=== PATIENT | male | born 1985 | race Caucasian/White ===

== ENCOUNTER 2022-01-08 11:47 | Emergency (ER) | payer OTHER ==
[~2022-01-08] VITALS: Ht 172.7 cm; Wt 51.3 kg
--- NOTE | 2022-01-08 12:00 | NUR ---
PT SEEN BY DR FOREMAN
--- NOTE | 2022-01-08 12:06 | NUR ---
PT TAKEN TO RADIOLOGY FOR CT.
--- NOTE | 2022-01-08 12:16 | NUR ---
PT RETURNED FROM RADIOLOGY
--- NOTE | 2022-01-08 12:54 | NUR ---
Patient discharged to home in stable condition, friend at bedside to pickup pt. Written and verbal after care instructions given. Patient verbalizes understanding of instruction.
[2022-01-08 12:55] VITALS: BP 120/62
== END 2022-01-08 12:59 | disposition home or self-care (01) ==
LOC: ER 11:49
DX: M54.2 Cervicalgia (principal); M54.9 Dorsalgia, unspecified
CPT/HCPCS: 70450-TC; 72125-TC